=== PATIENT | female | born 1960 | race Caucasian/White ===

== ENCOUNTER 2020-08-01 15:45 | Emergency (ER) | payer MEDICARE, OTHER ==
[2020-08-01 17:03] LABS: RED BLOOD COUNT 4.68 M/UL (4.00-5.10); WHITE BLOOD COUNT 9.6 K/UL (4.5-11.0)
[2020-08-01 17:31] LABS: BUN/CREATININE RATIO 23 (0-10)
[2020-08-01] MEDS ORDERED: PREDNISONE 10 M10 MG PO (18:14)
[2020-08-01] MEDS ORDERED: DOXYCYCLINE HY100 MG PO (18:14)
== END 2020-08-01 18:55 | disposition home or self-care (01) ==
LOC: ER1 15:45
PROVIDERS: Emergency Medicine
DX: J44.1 Chronic obstructive pulmonary disease with (acute) exacerbation (principal); I10 Essential (primary) hypertension; F17.200 Nicotine dependence, unspecified, uncomplicated; Z88.5 Allergy status to narcotic agent; Z90.710 Acquired absence of both cervix and uterus
CPT/HCPCS: 36600; 71045; 80053; 82550; 82553; 82803; 83874; 83880; 84484; 85025; 93005; 96374; 99285; J1100

== ENCOUNTER → 2020-10-19 | Outpatient (CLI) | payer MEDICARE, OTHER ==
[~2020-10-19] MED LIST: DOXYCYCLINE HY100 MG PO; PREDNISONE 10 M10 MG PO
== END ==
LOC: OPSV 13:00
DX: B44.1 Other pulmonary aspergillosis (principal)
CPT/HCPCS: G0463

== ENCOUNTER 2021-09-04 16:19 | Inpatient (IN) | payer MEDICARE, OTHER ==
[~2021-09-04] VITALS: Ht 165.1 cm; Wt 54.4 kg
[~2021-09-04 16:19] MED LIST changes: +NITROSTAT0.4 MG SL; +VITAMIN D21250 MCG PO
[2021-09-04 17:41] LABS: HEMOGLOBIN 14.5 gm/dl (12.3-15.3); RED BLOOD COUNT 4.28 M/UL (4.00-5.10); WHITE BLOOD COUNT 6.4 K/UL (4.5-11.0)
[2021-09-04 18:18] LABS: BUN/CREATININE RATIO 16 (0-10)
--- NOTE | 2021-09-05 01:05 | NUR ---
PT DOES NOT HAVE MEDICATION BOTTLES WITH HER. [facility] TO [facility] IN AM. WILL CONTINUE TO MONITOR.
[2021-09-05] MEDS ORDERED: LINZESS145 MCG PO (07:48)
[2021-09-05] MEDS ORDERED: PROTONIX 40 MG40 M1 PO (07:49)
[2021-09-05] MEDS ORDERED: SPIRIVA RESPIMAT4 GM INH (07:57)
[2021-09-05] MEDS ORDERED: DOCUSATE SODIU100 MG PO (07:57)
[2021-09-05] MEDS ORDERED: FAMOTIDINE40 MG PO (07:57)
[2021-09-05] MEDS ORDERED: SYMBICORT 16010.2 GM INH (07:58)
[2021-09-05] MEDS ORDERED: CLONAZEPAM1 MG PO (07:58)
[2021-09-05] MEDS ORDERED: OXYCODONE-ACET1 EACH PO (07:59)
[2021-09-05] MEDS ORDERED: ASPIRIN EC81 MG PO (08:00)
[2021-09-05] MEDS ORDERED: LACTULOSE10 GM/151 PO (08:00)
[2021-09-05] MEDS ORDERED: LEVOTHYROXINE75 MCG PO (08:01)
[2021-09-05] MEDS ORDERED: GABAPENTIN300 MG PO (08:01)
[2021-09-05] MEDS ORDERED: PROMETHAZINE HC25 M1 PO (08:03)
[2021-09-05] MEDS ORDERED: MUCUS RELIEF600 MG PO (08:05)
[2021-09-05] MEDS ORDERED: PREGABALIN150 MG PO (08:06)
[2021-09-05] MEDS ORDERED: PROGESTERONE100 MG PO (08:06)
[2021-09-05] MEDS ORDERED: METOPROLOL SUCC50 MG PO (08:07)
[2021-09-05] MEDS ORDERED: CRESTOR20 MG PO (08:10)
[2021-09-05] MEDS ORDERED: IBUPROFEN800 MG PO (13:21)
[2021-09-05] MEDS ORDERED: PROAIR HFA8.5 GM INH (13:22)
[2021-09-05] MEDS ORDERED: ACETAMINOPHEN325 MG PO (13:23)
[2021-09-05] MEDS ORDERED: DALIRESP250 MCG PO (13:26)
[2021-09-06 04:48] LABS: HEMOGLOBIN 12.9 gm/dl (12.3-15.3); RED BLOOD COUNT 3.82 M/UL (4.00-5.10); WHITE BLOOD COUNT 5.5 K/UL (4.5-11.0)
[2021-09-06 04:49] LABS: BUN/CREATININE RATIO 19 (0-10)
[2021-09-07 11:14] LABS: HEMOGLOBIN 13.4 gm/dl (12.3-15.3); RED BLOOD COUNT 4.05 M/UL (4.00-5.10)
[2021-09-07 11:15] LABS: WHITE BLOOD COUNT 7.4 K/UL (4.5-11.0)
[2021-09-07 11:31] LABS: BUN/CREATININE RATIO 25 (0-10)
--- NOTE | 2021-09-07 17:33 | NUR ---
408- NOTIFIED DR. WISE PT HAD 16 BEAT RUN OF [place]. DR. WISE STATES SHE WAS GOING TO DISCHARGE HER BUT CAN NOT NOW. WILL CONITNUE TO MONITOR. NO NEW ORDERS AT THIS TIME
[2021-09-07 19:00] LABS: BUN/CREATININE RATIO 24 (0-10)
[2021-09-08] MEDS ORDERED: IPRAT-ALBUT 0.5-3 ML NEB (18:06)
[2021-09-08] MEDS ORDERED: POLYETHYLENE GL17 GM PO (18:06)
[2021-09-08] MEDS ORDERED: OMNICEF 300 MG300 MG PO (18:06)
[2021-09-08] MEDS ORDERED: MEDROL DOSEPAK 24 MG PO (18:09)
== END 2021-09-08 19:25 | disposition home or self-care (01) | DRG 189 ==
LOC: ER1 16:19 → CDU 20:41 → MED SURG 4 20:41
PROVIDERS: Student in an Organized Health Care Education/Training Program; ADMIT Internal Medicine
PROC: B24BZZZ Ultrasonography of Heart with Aorta (ICD-10-PCS; principal; 2021-09-08)
DX: J96.21 Acute and chronic respiratory failure with hypoxia (principal); J44.1 Chronic obstructive pulmonary disease with (acute) exacerbation; I47.1 Supraventricular tachycardia; Z20.822 Contact with and (suspected) exposure to COVID-19; J40 Bronchitis, not specified as acute or chronic; B19.20 Unspecified viral hepatitis C without hepatic coma; G47.33 Obstructive sleep apnea (adult) (pediatric); E03.9 Hypothyroidism, unspecified; F17.210 Nicotine dependence, cigarettes, uncomplicated; F41.9 Anxiety disorder, unspecified; F32.A Depression, unspecified; K21.9 Gastro-esophageal reflux disease without esophagitis; K58.9 Irritable bowel syndrome, unspecified; Z99.81 Dependence on supplemental oxygen; Z85.118 Personal history of other malignant neoplasm of bronchus and lung; Z90.49 Acquired absence of other specified parts of digestive tract; Z90.710 Acquired absence of both cervix and uterus; Z98.51 Tubal ligation status; Z82.49 Family history of ischemic heart disease and other diseases of the circulatory system; Z82.3 Family history of stroke; Z88.6 Allergy status to analgesic agent; Z88.8 Allergy status to other drugs, medicaments and biological substances; Z79.01 Long term (current) use of anticoagulants; Z79.82 Long term (current) use of aspirin
CPT/HCPCS: ECHO; 0240U; 36600; 71045; 80053; 82550; 82553; 82803; 83735; 84484; 85025; 93005; 93306; 94640; 94664; 94760; 96374; 99285; J0456; J0696; J1650; J2920; J2930; J7030; Q9967

== ENCOUNTER 2021-09-12 14:10 | Inpatient (IN) | payer MEDICARE, OTHER ==
[~2021-09-12] VITALS: Ht 165.1 cm; Wt 54.4 kg
[~2021-09-12 14:10] MED LIST changes: +ACETAMINOPHEN325 MG PO; +ASPIRIN EC81 MG PO; +CLONAZEPAM1 MG PO; +CRESTOR20 MG PO; +DALIRESP250 MCG PO; +DOCUSATE SODIU100 MG PO; +FAMOTIDINE40 MG PO; +GABAPENTIN300 MG PO; +IBUPROFEN800 MG PO; +IPRAT-ALBUT 0.5-3 ML NEB; +LACTULOSE10 GM/151 PO; +LEVOTHYROXINE75 MCG PO; +LINZESS145 MCG PO; +MEDROL DOSEPAK 24 MG PO; +METOPROLOL SUCC50 MG PO; +MUCUS RELIEF600 MG PO; +OMNICEF 300 MG300 MG PO; +OXYCODONE-ACET1 EACH PO; +POLYETHYLENE GL17 GM PO; +PREGABALIN150 MG PO; +PROAIR HFA8.5 GM INH; +PROGESTERONE100 MG PO; +PROMETHAZINE HC25 M1 PO; +PROTONIX 40 MG40 M1 PO; +SPIRIVA RESPIMAT4 GM INH; +SYMBICORT 16010.2 GM INH
[2021-09-12 16:18] LABS: HEMOGLOBIN 15.2 gm/dl (12.3-15.3); RED BLOOD COUNT 4.52 M/UL (4.00-5.10); WHITE BLOOD COUNT 8.2 K/UL (4.5-11.0)
[2021-09-12 16:41] LABS: BUN/CREATININE RATIO 24 (0-10)
[2021-09-13 01:59] LABS: HEMOGLOBIN 13.2 gm/dl (12.3-15.3); RED BLOOD COUNT 3.93 M/UL (4.00-5.10)
[2021-09-13 02:38] LABS: BUN/CREATININE RATIO 27 (0-10)
[2021-09-13] MEDS ORDERED: LYRICA150 MG PO (09:06)
[2021-09-13] MEDS ORDERED: IBU600 MG PO (09:06)
[2021-09-13] MEDS ORDERED: PERCOCET 10-321 EACH PO (09:07)
[2021-09-13] MEDS ORDERED: KLONOPIN1 MG PO (09:08)
[2021-09-13] MEDS ORDERED: IPRAT-ALBUT 0.5-3 ML INH (15:40)
[2021-09-14 02:12] LABS: HEMOGLOBIN 14.3 gm/dl (12.3-15.3); RED BLOOD COUNT 4.24 M/UL (4.00-5.10); WHITE BLOOD COUNT 6.9 K/UL (4.5-11.0)
[2021-09-14 04:14] LABS: BUN/CREATININE RATIO 31 (0-10)
--- NOTE | 2021-09-14 14:45 | NUR ---
PT MORE SEDATED AND HARD TO AROUSE. UNIDENTIFIED PILLS FOUND NEXT TO PATIENT NOT IN CONTAINER AND IN A SMALL ZIP LOCK BAG. NOTIFIED DR NAYLOR. PT ON BIPAP AT 50%
--- NOTE | 2021-09-14 17:06 | NUR ---
CALLED DR NEFF AND DR NAYLOR TO NOTIFY THEM OF PTS RESP DISTRESS AND ABG RESULTS. ORDERS TO TRANSPORT TO ICU. PT TAKEN TO ICU VIA BED WITH RN AND RT ON BIPAP AND MONITOR. DR NEFF AT BEDSIDE SPEAKING WITH STAFF AND FAMILY.
--- NOTE | 2021-09-14 17:17 | NUR ---
REPORT GIVEN TO STELLA VALDEZ AT BEDSIDE.
[2021-09-15 04:03] LABS: HEMOGLOBIN 12.6 gm/dl (12.3-15.3); WHITE BLOOD COUNT 5.6 K/UL (4.5-11.0)
[2021-09-15 04:10] LABS: RED BLOOD COUNT 3.77 M/UL (4.00-5.10)
[2021-09-15] MEDS ORDERED: LINZESS145 MCG PO (19:24)
[2021-09-16 04:38] LABS: HEMOGLOBIN 12.3 gm/dl (12.3-15.3); RED BLOOD COUNT 3.7 M/UL (4.00-5.10); WHITE BLOOD COUNT 5.3 K/UL (4.5-11.0)
[2021-09-17 05:07] LABS: HEMOGLOBIN 11.6 gm/dl (12.3-15.3); RED BLOOD COUNT 3.48 M/UL (4.00-5.10); WHITE BLOOD COUNT 5.7 K/UL (4.5-11.0)
[2021-09-17 05:23] LABS: BUN/CREATININE RATIO 34 (0-10)
[2021-09-18 04:47] LABS: HEMOGLOBIN 12.3 gm/dl (12.3-15.3); RED BLOOD COUNT 3.69 M/UL (4.00-5.10)
[2021-09-18 04:54] LABS: WHITE BLOOD COUNT 7.8 K/UL (4.5-11.0)
[2021-09-18 05:22] LABS: BUN/CREATININE RATIO 37 (0-10)
[2021-09-19 06:57] LABS: HEMOGLOBIN 12.7 gm/dl (12.3-15.3); RED BLOOD COUNT 3.82 M/UL (4.00-5.10); WHITE BLOOD COUNT 6.3 K/UL (4.5-11.0)
[2021-09-19 07:30] LABS: BUN/CREATININE RATIO 34 (0-10)
== END 2021-09-19 13:09 | disposition home or self-care (01) | DRG 189 ==
LOC: ER1 14:10 → CDU 17:55 → CCU 17:55 → PROG CARE 17:55 → CCU 09-14 17:02 → PROG CARE 09-18 19:42
PROVIDERS: Emergency Medicine; Internal Medicine; Internal Medicine Pulmonary Disease; ADMIT Internal Medicine
DX: J96.21 Acute and chronic respiratory failure with hypoxia (principal); I50.33 Acute on chronic diastolic (congestive) heart failure; Z20.822 Contact with and (suspected) exposure to COVID-19; J44.1 Chronic obstructive pulmonary disease with (acute) exacerbation; G93.49 Other encephalopathy; F11.20 Opioid dependence, uncomplicated; G89.29 Other chronic pain; E03.9 Hypothyroidism, unspecified; F41.9 Anxiety disorder, unspecified; I11.0 Hypertensive heart disease with heart failure; E78.5 Hyperlipidemia, unspecified; K58.9 Irritable bowel syndrome, unspecified; B19.20 Unspecified viral hepatitis C without hepatic coma; G47.33 Obstructive sleep apnea (adult) (pediatric); K21.9 Gastro-esophageal reflux disease without esophagitis; M54.9 Dorsalgia, unspecified; E83.42 Hypomagnesemia; E83.39 Other disorders of phosphorus metabolism; E87.6 Hypokalemia; J96.22 Acute and chronic respiratory failure with hypercapnia; F32.A Depression, unspecified; R79.89 Other specified abnormal findings of blood chemistry; D69.6 Thrombocytopenia, unspecified; F17.210 Nicotine dependence, cigarettes, uncomplicated; Z85.118 Personal history of other malignant neoplasm of bronchus and lung; Z79.01 Long term (current) use of anticoagulants; Z79.82 Long term (current) use of aspirin; Z99.81 Dependence on supplemental oxygen; Z90.49 Acquired absence of other specified parts of digestive tract; Z90.710 Acquired absence of both cervix and uterus; Z98.51 Tubal ligation status; Z82.49 Family history of ischemic heart disease and other diseases of the circulatory system; Z82.3 Family history of stroke; Z88.6 Allergy status to analgesic agent; Z88.1 Allergy status to other antibiotic agents; Z88.5 Allergy status to narcotic agent; Z88.8 Allergy status to other drugs, medicaments and biological substances
CPT/HCPCS: 0240U; 36415; 36600; 71045; 80048; 80053; 81001; 82550; 82553; 82803; 83036; 83540; 83550; 83605; 83735; 83880; 84100; 84132; 84484; 84703; 85025; 85027; 85652; 86140; 87040; 87070; 87086; 87205; 93005; 94640; 94660; 94760; 96374; 96375; 97162; 97166; 97530; 97535; 99285; J0692; J1642; J1650; J2060; J2185; J2405; J2920; J2930; J3370; J3475; J3486; J7040; J7050; J7070

== ENCOUNTER 2021-12-16 17:54 | Emergency (ER) | payer MEDICARE, OTHER ==
[~2021-12-16 17:54] MED LIST changes: +IBU600 MG PO; +IPRAT-ALBUT 0.5-3 ML INH; +KLONOPIN1 MG PO; +LYRICA150 MG PO; +PERCOCET 10-321 EACH PO
[2021-12-16 18:28] LABS: HEMOGLOBIN 14.6 gm/dl (12.3-15.3); RED BLOOD COUNT 4.29 M/UL (4.00-5.10); WHITE BLOOD COUNT 8.4 K/UL (4.5-11.0)
[2021-12-16 18:53] LABS: BUN/CREATININE RATIO 17 (0-10)
== END 2021-12-16 20:15 | disposition left against medical advice (07) ==
LOC: ER1 17:54
PROVIDERS: Emergency Medicine
DX: Z53.21 Procedure and treatment not carried out due to patient leaving prior to being seen by health care provider (principal)
CPT/HCPCS: 71045; 80053; 82550; 82553; 84484; 85025; 93005

== ENCOUNTER 2022-01-13 12:35 | Emergency (ER) | payer MEDICARE, OTHER ==
[2022-01-13 13:51] LABS: HEMOGLOBIN 13.2 gm/dl (12.3-15.3); RED BLOOD COUNT 3.89 M/UL (4.00-5.10); WHITE BLOOD COUNT 7.1 K/UL (4.5-11.0)
[2022-01-13 14:16] LABS: BUN/CREATININE RATIO 26 (0-10)
[2022-01-13] MEDS ORDERED: VIBRAMYCIN100 MG PO (18:14)
== END 2022-01-13 19:30 | disposition home or self-care (01) ==
LOC: ER1 12:35
PROVIDERS: Emergency Medicine
DX: J44.1 Chronic obstructive pulmonary disease with (acute) exacerbation (principal); R00.0 Tachycardia, unspecified; K62.89 Other specified diseases of anus and rectum; Z85.118 Personal history of other malignant neoplasm of bronchus and lung; Z20.822 Contact with and (suspected) exposure to COVID-19
CPT/HCPCS: 71045; 80053; 81001; 83605; 83735; 84100; 85025; 87040; 87070; 87086; 87205; 93005; 94664; 96374; 96375; 99285; J1100; J1170; J1642; Q9967; U0002